=== PATIENT | female | born 1955 | race Caucasian/White ===

== ENCOUNTER 2016-06-14 07:55 | Inpatient (IN) | payer MEDICAID ==
[2016-06-14] VITALS (10 sets, daily range): BP systolic 100–125; BP diastolic 55–78
[~2016-06-14] VITALS: Ht 152.4 cm; Wt 74.4 kg
[2016-06-14] MEDS ORDERED: PANTOPRAZOLE 80 MG in SODIUM CHLORIDE 0.9% 100 ML IV STA (08:19)
[2016-06-14] MEDS ORDERED: SODIUM CHLORIDE 0.9% 1,000 ML IV ONE (08:19)
[2016-06-14] MEDS ORDERED: PANTOPRAZOLE SODIUM 40 MG/VIAL IV STA (08:19)
[2016-06-14] MEDS ORDERED: ONDANSETRON HCL 4MG/2ML VIAL IV ONE (08:30)
[2016-06-14] MEDS ORDERED: PANTOPRAZOLE 80 MG in SODIUM CHLORIDE 0.9% 100 ML IV ONE (08:34)
[2016-06-14 08:44] LABS: BASOPHILS % 0.5 % (0.0-2.0); EOSINOPHILS % 0.3 % (0.0-5.0); MEAN CORPUSCULAR HEMOGLOBIN 20.8 pg (28.0-32.0); MEAN CORPUSCULAR HGB CONC 29.9 g/dL (31.0-37.0); MEAN CORPUSCULAR VOLUME 69.8 fL (81.0-99.0); MEAN PLATELET VOLUME 9.4 fl (7.4-10.4); MONOCYTES % 5.7 % (2.0-8.0); NEUTROPHILS % 71.5 % (40.0-76.0); PLATELET 133 x1000/uL (130-400); RED CELL DISTRIBUTION WIDTH 18.2 % (11.6-14.6); WHITE BLOOD COUNT 10.2 x1000/uL (4.5-11.0)
[2016-06-14 08:51] LABS: INR 1.1; PARTIAL THROMBOPLASTIN TIME 24.1 sec (24.0-34.0)
[2016-06-14 08:56] LABS: DIFFERENTIAL COMMENT 1
[2016-06-14 08:58] LABS: ALANINE AMINOTRANSFERASE 33 IU/L (13-61); ALBUMIN 2.7 g/dL (3.4-5.0); ANION GAP 15; CALCIUM 7.8 mg/dL (8.5-10.1); CARBON DIOXIDE 25 mEq/L (21-32); CHLORIDE 104 mEq/L (98-107); INDEX HEMOLYSI 1 (1-3); INDEX ICTERIC 1 (1-4); INDEX LIPEMIC 1 (1-3); LIPASE 232 IU/L (73-393); TROPONIN I 0.02 ng/mL (0.00-0.04); UREA NITROGEN BLOOD 25 mg/dL (7-21); eGFR > 60 mL/min (>60)
[2016-06-14 09:04] LABS: HEMOGLOBIN. 6.9 g/dL (12.0-16.0)
[2016-06-14 09:05] LABS: ADD RBC MORPHOLOGY YES
[2016-06-14 10:01] LABS: ANISOCYTOSIS 1+; PLATELET ESTIMATE NORMAL
[2016-06-14] MEDS ORDERED: PANTOPRAZOLE 80 MG in SODIUM CHLORIDE 0.9% 100 ML IV SCH (11:15)
[2016-06-14] MEDS ORDERED: IPRATROPIUM/ALBUTEROL 0.5-3(2.5)MG/3ML NEB INH PRN (11:15)
[2016-06-14] MEDS ORDERED: ONDANSETRON HCL 4MG/2ML VIAL IV PRN (11:15)
[2016-06-14 11:35] LABS: GAMMA GLUTAMYL TRANSPEPTIDASE 226 IU/L (7-32); INDEX HEMOLYSI 1 (1-3); INDEX ICTERIC 1 (1-4); INDEX LIPEMIC 1 (1-3); IRON 90 ug/dL (50-175); TOTAL IRON BINDING CAPACITY 348 ug/dL (250-450)
[2016-06-14] MEDS: SODIUM CHLORIDE 0.9% 1,000 ML IV SCH (13:33)
[2016-06-14] MEDS ORDERED: SODIUM CHLORIDE 0.9% 10ML VIAL ONE ×2 (14:33→14:43)
[2016-06-14] MEDS ORDERED: IOHEXOL-350 100 ML BOTTLE ONE (14:43)
[2016-06-14] MEDS ORDERED: FENTANYL CITRATE/PF 50MCG/ML 2ML VIAL ONE (17:04)
[2016-06-14] MEDS ORDERED: SIMETHICONE 40 MG/0.6 ML 30ML ONE (17:04)
[2016-06-14] MEDS ORDERED: MIDAZOLAM HCL 5 MG/5 ML VIAL ONE (17:04)
[2016-06-14] MEDS ORDERED: FENTANYL CITRATE/PF 50MCG/ML 2ML VIAL IV PRN (17:17)
[2016-06-14] MEDS ORDERED: MIDAZOLAM HCL 5 MG/5 ML VIAL IV PRN (18:16)
[2016-06-14] MEDS ORDERED: [UNRECOGNIZED DRUG - REMARK] (19:38)
[2016-06-14] MEDS ORDERED: OMEP20TA15 PO (20:20)
[2016-06-14] MEDS ORDERED: INSU3INS6 SUBCUT (20:20)
[2016-06-14] MEDS ORDERED: METF10002 PO (20:20)
[2016-06-14] MEDS ORDERED: KAOPECTATE (20:20)
[2016-06-14] MEDS ORDERED: HUMULIN (20:20)
[2016-06-14] MEDS ORDERED: LISI10TA5 PO (20:20)
[2016-06-14] MEDS ORDERED: GABA-531 PO (20:20)
[2016-06-14] MEDS ORDERED: ACET-2178 PO (20:20)
[2016-06-14] MEDS ORDERED: ASPI-1035 PO (20:20)
[2016-06-14] MEDS: PANTOPRAZOLE SODIUM 40 MG/VIAL IV SCH (20:53)
[2016-06-14 22:02] LABS: HEMATOCRIT 24.6 % (36.0-48.0); HEMOGLOBIN 7.8 g/dL (12.0-16.0)
[2016-06-14 22:29] LABS: INDEX HEMOLYSI 1 (1-3)
[2016-06-14 23:13] LABS: CREATINE KINASE 97 IU/L (26-192); CREATINE KINASE MB FRACTION < 0.5 ng/mL (0.5-3.6); TROPONIN I < 0.02 ng/mL (0.00-0.04)
[2016-06-15] VITALS (14 sets, daily range): BP systolic 96–125; BP diastolic 36–66
[2016-06-15 00:46] LABS: CREATINE KINASE 93 IU/L (26-192); CREATINE KINASE MB FRACTION < 0.5 ng/mL (0.5-3.6); INDEX HEMOLYSI 1 (1-3); TROPONIN I < 0.02 ng/mL (0.00-0.04)
[2016-06-15 06:58] LABS: BASOPHILS % 0.4 % (0.0-2.0); EOSINOPHILS % 1.6 % (0.0-5.0); HEMATOCRIT. 27.7 % (36.0-48.0); HEMOGLOBIN. 8.8 g/dL (12.0-16.0); LYMPHOCYTES % 39.3 % (20.0-50.0); MEAN CORPUSCULAR HGB CONC 31.8 g/dL (31.0-37.0); MEAN CORPUSCULAR VOLUME 75.7 fL (81.0-99.0); MEAN PLATELET VOLUME 10.3 fl (7.4-10.4); MONOCYTES % 6.4 % (2.0-8.0); NEUTROPHILS % 52.3 % (40.0-76.0); PLATELET 131 x1000/uL (130-400); RED BLOOD CELL COUNT 3.66 mill/uL (4.2-5.4); RED CELL DISTRIBUTION WIDTH 23.8 % (11.6-14.6); WHITE BLOOD COUNT 9.3 x1000/uL (4.5-11.0)
[2016-06-15 07:24] LABS: HEPATITIS B SURFACE ANTIGEN NEGATIVE
[2016-06-15 07:46] LABS: ALANINE AMINOTRANSFERASE 26 IU/L (13-61); ALBUMIN 2.4 g/dL (3.4-5.0); ANION GAP 11; CALCIUM 7.5 mg/dL (8.5-10.1); CARBON DIOXIDE 26 mEq/L (21-32); CHLORIDE 109 mEq/L (98-107); HDL CHOLESTEROL 38 mg/dL (40-59); INDEX HEMOLYSI 1 (1-3); INDEX ICTERIC 1 (1-4); INDEX LIPEMIC 1 (1-3); LDL CHOLESTEROL 43 mg/dL (5-100); TRIGLYCERIDE 151 mg/dL (0-150); UREA NITROGEN BLOOD 9 mg/dL (7-21); eGFR > 60 mL/min (>60)
[2016-06-15 07:52] LABS: HEPATITIS C VIR.AB < 0.02 INDEXVAL (0.00-0.80)
[2016-06-15 07:53] LABS: HEPATITIS B CORE AB IGM NEGATIVE
[2016-06-15 07:54] LABS: HEPATITIS A AB IGM NEGATIVE (NEGATIVE)
[2016-06-15 08:12] LABS: DIFFERENTIAL COMMENT 1
[2016-06-15] MEDS: PANTOPRAZOLE SODIUM 40 MG/VIAL IV SCH ×2 (09:07→20:55)
[2016-06-15] MEDS ORDERED: DEXTROSE 50% WATER 50ML SYRINGE IV PRN (10:15)
[2016-06-15] MEDS: BLOOD SUGAR DIAGNOSTIC STRIP TEST SCH ×3 (12:37→21:07)
[2016-06-15] MEDS: INSULIN LISPRO 100 UNITS/ML SUBCUT SCH ×3 (12:38→21:07)
[2016-06-15] MEDS: SODIUM CHLORIDE 0.9% 1,000 ML IV SCH (12:39)
[2016-06-15] MEDS: GABAPENTIN 100MG CAPSULE PO SCH ×2 (13:40→21:07)
[2016-06-16] VITALS (12 sets, daily range): BP systolic 111–136; BP diastolic 41–79
[2016-06-16] MEDS: SODIUM CHLORIDE 0.9% 1,000 ML IV SCH ×2 (00:38→12:06)
[2016-06-16] MEDS: GABAPENTIN 100MG CAPSULE PO SCH ×3 (05:40→21:09)
[2016-06-16] MEDS: INSULIN LISPRO 100 UNITS/ML SUBCUT SCH ×4 (06:55→21:10)
[2016-06-16] MEDS: BLOOD SUGAR DIAGNOSTIC STRIP TEST SCH ×4 (06:55→21:09)
[2016-06-16] MEDS: PANTOPRAZOLE SODIUM 40 MG/VIAL IV SCH ×2 (08:32→21:09)
[2016-06-16 10:14] LABS: BASOPHILS % 0.7 % (0.0-2.0); EOSINOPHILS % 2.5 % (0.0-5.0); HEMATOCRIT. 27.5 % (36.0-48.0); HEMOGLOBIN. 8.8 g/dL (12.0-16.0); LYMPHOCYTES % 35.8 % (20.0-50.0); MEAN CORPUSCULAR HEMOGLOBIN 24.7 pg (28.0-32.0); MEAN CORPUSCULAR HGB CONC 32.1 g/dL (31.0-37.0); MONOCYTES % 7.2 % (2.0-8.0); NEUTROPHILS % 53.8 % (40.0-76.0); PLATELET 117 x1000/uL (130-400); RED BLOOD CELL COUNT 3.57 mill/uL (4.2-5.4); RED CELL DISTRIBUTION WIDTH 24.3 % (11.6-14.6); WHITE BLOOD COUNT 8.3 x1000/uL (4.5-11.0)
[2016-06-16 10:15] LABS: DIFFERENTIAL COMMENT 1
[2016-06-17] VITALS (12 sets, daily range): BP systolic 118–153; BP diastolic 52–79
[2016-06-17] MEDS: SODIUM CHLORIDE 0.9% 1,000 ML IV SCH ×2 (01:38→18:00)
[2016-06-17] MEDS: GABAPENTIN 100MG CAPSULE PO SCH ×3 (06:00→21:46)
[2016-06-17 06:32] LABS: ANION GAP 10; CALCIUM 8.2 mg/dL (8.5-10.1); CARBON DIOXIDE 30 mEq/L (21-32); CHLORIDE 108 mEq/L (98-107); INDEX HEMOLYSI 1 (1-3); INDEX ICTERIC 1 (1-4); INDEX LIPEMIC 1 (1-3); UREA NITROGEN BLOOD 5 mg/dL (7-21); eGFR > 60 mL/min (>60)
[2016-06-17] MEDS: BLOOD SUGAR DIAGNOSTIC STRIP TEST SCH ×4 (07:40→21:35)
[2016-06-17 07:51] LABS: BASOPHILS % 0.4 % (0.0-2.0); EOSINOPHILS % 3.2 % (0.0-5.0); HEMATOCRIT. 29.1 % (36.0-48.0); HEMOGLOBIN. 9.3 g/dL (12.0-16.0); LYMPHOCYTES % 32.8 % (20.0-50.0); MEAN CORPUSCULAR HEMOGLOBIN 24.4 pg (28.0-32.0); MEAN CORPUSCULAR HGB CONC 31.9 g/dL (31.0-37.0); MEAN CORPUSCULAR VOLUME 76.7 fL (81.0-99.0); MEAN PLATELET VOLUME 10.6 fl (7.4-10.4); MONOCYTES % 5.2 % (2.0-8.0); NEUTROPHILS % 58.4 % (40.0-76.0); PLATELET 131 x1000/uL (130-400); RED CELL DISTRIBUTION WIDTH 25.4 % (11.6-14.6); WHITE BLOOD COUNT 8.6 x1000/uL (4.5-11.0)
[2016-06-17 08:15] LABS: DIFFERENTIAL COMMENT 1
[2016-06-17] MEDS: INSULIN LISPRO 100 UNITS/ML SUBCUT SCH ×4 (08:24→21:47)
[2016-06-17] MEDS: PANTOPRAZOLE SODIUM 40 MG/VIAL IV SCH ×2 (08:24→21:46)
[2016-06-17 09:27] LABS: ALPHA-1 ANTI-TRYPSIN 135 mg/dL (90-200)
[2016-06-17 13:07] LABS: ACTIN (SMOOTH MUSCLE) ANTIBODY 11 Units (0-19); ANTI-NUCLEAR ANTIBODIES DIRECT Negative (Negative)
[2016-06-17 14:20] LABS: MITOCHONDRIAL M2 AB 8.1 Units (0.0-20.0)
[2016-06-18] VITALS (10 sets, daily range): BP systolic 118–150; BP diastolic 59–80
[2016-06-18] MEDS: GABAPENTIN 100MG CAPSULE PO SCH ×2 (07:55→17:13)
[2016-06-18] MEDS: BLOOD SUGAR DIAGNOSTIC STRIP TEST SCH ×3 (08:02→17:14)
[2016-06-18] MEDS: INSULIN LISPRO 100 UNITS/ML SUBCUT SCH ×3 (08:09→17:18)
[2016-06-18] MEDS: PANTOPRAZOLE SODIUM 40 MG/VIAL IV SCH (08:30)
[2016-06-18] MEDS ORDERED: OMEP20TA15 PO (10:04)
[2016-06-18] MEDS ORDERED: METF10002 PO (10:04)
[2016-06-18] MEDS ORDERED: GABA-531 PO (10:04)
[2016-06-18] MEDS ORDERED: INSU3INS6 SUBCUT (10:04)
[2016-06-18] MEDS ORDERED: LISI10TA5 PO (10:04)
[2016-06-18] MEDS ORDERED: PROPRANOLOL HCL 10MG TABLET PO SCH (10:45)
[2016-06-18 13:20] LABS: HEMATOCRIT 30.6 % (36.0-48.0); HEMOGLOBIN 9.7 g/dL (12.0-16.0); MEAN CORPUSCULAR HEMOGLOBIN 24.3 pg (28.0-32.0); MEAN CORPUSCULAR HGB CONC 31.6 g/dL (31.0-37.0); MEAN CORPUSCULAR VOLUME 76.7 fL (81.0-99.0); PLATELET 137 x1000/uL (130-400); RED BLOOD CELL COUNT 3.98 mill/uL (4.2-5.4); RED CELL DISTRIBUTION WIDTH 25.1 % (11.6-14.6); WHITE BLOOD COUNT 8.6 x1000/uL (4.5-11.0)
== END 2016-06-18 18:45 | disposition home or self-care (01) | DRG 253 ==
LOC: ER 07:59 → 5EST 09:39
PROVIDERS: ADMIT Internal Medicine; ATTEND Internal Medicine
PROC: 0DJ08ZZ Inspection of Upper Intestinal Tract, Via Natural or Artificial Opening Endoscopic (ICD-10-PCS; 2016-06-14)
PROC: 30233N1 Transfusion of Nonautologous Red Blood Cells into Peripheral Vein, Percutaneous Approach (ICD-10-PCS; principal; 2016-06-14 16:00)
DX: K92.2 Gastrointestinal hemorrhage, unspecified (principal); E43 Unspecified severe protein-calorie malnutrition; K74.60 Unspecified cirrhosis of liver; I86.4 Gastric varices; K92.0 Hematemesis; I85.00 Esophageal varices without bleeding; E11.65 Type 2 diabetes mellitus with hyperglycemia; D62 Acute posthemorrhagic anemia; E88.09 Other disorders of plasma-protein metabolism, not elsewhere classified; K76.0 Fatty (change of) liver, not elsewhere classified; R74.8 Abnormal levels of other serum enzymes; K80.20 Calculus of gallbladder without cholecystitis without obstruction; G89.29 Other chronic pain; I10 Essential (primary) hypertension; E66.9 Obesity, unspecified; Z68.32 Body mass index [BMI] 32.0-32.9, adult
CPT/HCPCS: 36415; 36430; 71010; 73560; 74174; 76705; 80048; 80053; 80061; 80355; 81025; 82103; 82390; 82550; 82553; 82962; 82977; 83036; 83516; 83540; 83550; 83690; 84443; 84484; 85014; 85018; 85025; 85027; 85044; 85610; 85730; 86038; 86705; 86709; 86803; 86850; 86900; 86920; 87340; 93005; 93970; 96365; 96366; 96375; 97162; 99291; A4216; C9113; J1815; J2250; J2405; J3010; J7030; J7040; J7050; P9016; Q9967